=== PATIENT | female | born 1980 | race Hispanic/Latino ===

== ENCOUNTER → 2016-05-10 | Outpatient (REF) | payer OTHER, MEDICAID | LOC: M SFHCLERA 15:37 | PROVIDERS: ATTEND Physician Assistant | DX: E66.9 Obesity, unspecified (principal) ==

== ENCOUNTER → 2016-05-16 | Outpatient (REF) | payer OTHER, MEDICAID | LOC: M LAB REF 16:41 | PROVIDERS: ATTEND Family Medicine | DX: Z12.4 Encounter for screening for malignant neoplasm of cervix (principal) ==

== ENCOUNTER → 2016-07-23 | Outpatient (REF) | payer OTHER, MEDICAID ==
[2016-07-23 20:51] LABS: FREE T4 0.76 NG/DL (0.76-1.46)
== END ==
LOC: M SFHCLERA 18:45
PROVIDERS: ATTEND Physician Assistant
DX: E03.9 Hypothyroidism, unspecified (principal)

== ENCOUNTER → 2016-11-27 | Outpatient (REF) | payer OTHER, MEDICAID ==
[2016-12-06 14:52] LABS: SUMMARY SEE SEPARATE REPORT
== END ==
LOC: M SFHCLERA 17:00
PROVIDERS: ATTEND Physician Assistant
DX: Z02.83 Encounter for blood-alcohol and blood-drug test (principal)